=== PATIENT | male | born 1980 | race African-American/Black ===

== ENCOUNTER 2023-08-31 10:23 | Outpatient (CLI) | payer OTHER, SELFPAY ==
--- NOTE | ~2023-08-31 | XR_ITS ---
EXAMINATION: XR abdomen/kub 1V DATE: 08/31/2023 10:42 INDICATION: Left ureteral stone. TECHNIQUE: A supine view of the abdomen on 2 radiographs was obtained. COMPARISON: CT abdomen and pelvis 08/24/2023 FINDINGS: There are no dilated loops of bowel. There is a 4 mm stone in distal left ureter. There are phleboliths in the pelvis. The kidneys are obscured by bowel. There is a 4 mm stone in right kidney. There is a 2 mm stone left kidney. IMPRESSION: 1. 4 mm stone in distal left ureter. 2. Bilateral kidney stones. Reviewed, dictated and finalized at location A. L CASKET MAKER
== END 2023-08-31 10:24 | disposition home or self-care (01) ==
PROVIDERS: PCP Physician Assistant; Visit Provider Urology
DX: N20.2 Calculus of kidney with calculus of ureter (principal)
CPT/HCPCS: 74018

== ENCOUNTER 2023-09-05 13:47 | Outpatient (CLI) | payer OTHER, SELFPAY ==
--- NOTE | ~2023-09-05 | XR_ITS ---
EXAMINATION: XR abdomen/kub 1V DATE: 09/05/2023 14:10 INDICATION: Kidney stone. TECHNIQUE: A supine view of the abdomen on 2 radiographs was obtained. COMPARISON: CT abdomen and pelvis 08/24/2023, radiographs 08/31/2023 FINDINGS: There is a large volume of stool in the colon. There is a 4 mm stone in right kidney. There are phleboliths in the pelvis. There is a 4 mm stone at left ureterovesicular junction. IMPRESSION: 1. 4 mm stone at left ureterovesicular junction. 2. 4 mm stone in right kidney. Reviewed, dictated and finalized at location E. STRINGER ASSEMBLER
== END 2023-09-05 13:48 ==
PROVIDERS: PCP Urology; Visit Provider Urology
DX: N20.2 Calculus of kidney with calculus of ureter (principal)
CPT/HCPCS: 74018

== ENCOUNTER 2023-09-11 14:15 | Outpatient (CLI) | payer OTHER, SELFPAY ==
[2023-09-11 15:05] LABS: Partial Thromboplastin Time 35.2 SECONDS (22.3-36.8)
== END 2023-09-11 14:16 | disposition home or self-care (01) ==
LOC: ANHSURGERY 14:20
PROVIDERS: Visit Provider Urology
DX: N20.1 Calculus of ureter (principal); Z01.818 Encounter for other preprocedural examination
CPT/HCPCS: 36415; 85610; 85730; 87086

== ENCOUNTER 2023-09-15 03:25 | Day surgery (SDC) | payer OTHER, SELFPAY ==
[2023-09-08 11:57] VITALS: BMI 22.4
--- NOTE | 2023-09-08 12:02 | PC.NURSE ---
Report to the Outpatient Waiting Room, entrance under the green pavilion located off [facility], at time 9:00 on date 09/15/23. Planned Procedure Time: 11:00. Time changes happen often and if your time is changed the preop area will call you the afternoon before. - You and your visitor will be asked to self-screen and do not enter if you have any COVID symptoms. - A mask is optional within the hospital at this time. Patients may have clear liquids (water, carbonated beverages, clear teas, apple juice) until 3 hours prior to surgery (8:00) with a maximum of 20 ounces. - No food from midnight until time of surgery Take the following medications with a SIP of water the morning of surgery: PAIN PILL IF NEEDED DO NOT STOP ANY OF YOUR OTHER PRESCRIPTION MEDICATIONS PRIOR TO SURGERY ?EXCEPT THE FOLLOWING Medications to discontinue per physician: N/A Date to take last dose: N/A Please no make-up, nail thai, hairspray, perfume, deodorant, or body powder the day of surgery. No jewelry (including any body piercings) or valuables the day of surgery, leave them at home. Please take a shower or bath the night before, or the morning of, surgery with an antibacterial soap. Wear comfortable, loose fitting clothing. - Jewelry must be removed prior to entering the operating room. Rings and piercings that are not removed may be cut off. - The hospital will not accept responsibility for valuables. - Please leave all valuables, including medications, at home the day of surgery. If you are going home after surgery, a licensed ice delivery driver must drive you home. - NO public transportation without another adult if you receive anesthesia. - We recommend that an adult stay with you for 24 hours following discharge. - We also recommend that you do not drive, make important decision, drink alcoholic beverages, or take any drugs that were not prescribed by your health care provider for at least 24 hours after your discharge time. Follow any additional instructions given to you from your surgeon. If you or anyone in your household have experienced Covid symptoms in the past week, please notify your surgeon or the nurse liaison at the phone number below for possible testing. Telephone instructions given to PT - MIRNA DUBOSE and asked if any additional questions and then verbalized understanding. Patient advised to call surgeon office or pre surgery nurse liaison [phone] if any additional questions.
--- NOTE | ~2023-09-15 | XR_ITS ---
EXAMINATION: XR abdomen/kub 1V DATE: 09/15/2023 09:30 INDICATION: Kidney stone. TECHNIQUE: A supine view of the abdomen on 2 radiographs was obtained. COMPARISON: CT abdomen and pelvis 09/15/2023 FINDINGS: There is a 5 mm stone in the bladder. There are phleboliths in left pelvis. There are no di lated loops of bowel. The kidneys are obscured by bowel. There is a 4 mm stone in right kidney upper pole. IMPRESSION: 1. 5 mm stone in the bladder. 2. 4 mm stone in right kidney upper pole. Reviewed, dictated and finalized at location A. NT CARE TECHNICIAN
--- NOTE | ~2023-09-15 | CT_ITS ---
Non-contrast CT scan of the Abdomen and Pelvis Clinical indication: Kidney stone Technique: 2.5 mm axial scans were obtained through the abdomen and pelvis without intravenous or or al contrast. Dose reduction technique was used on this scan by utilizing automated exposure control a nd iterative reconstruction technique. The dose-length product (DLP) was 224.98 mGy-cm. Findings: Images through the lung bases reveal no abnormalities. There are bilateral small nonobstructing renal stones. No definite ureteral stone or hydronephrosis o n either side. The liver, spleen, pancreas, gallbladder, and adrenals appear normal. There is no aortic aneurysm. There is no evidence of bowel obstruction. Images through the pelvis were performed. There is no evidence of ascites or lymphadenopathy. 5 mm ur inary bladder stone present. No pelvic mass evident. Impression: Small bilateral nonobstructing renal stones. No ureteral stone or hydronephrosis. 5 mm urinary bladder stone. Reviewed, dictated and finalized at [facility]. CTIVE AND INTELLIGENCE ANALYST Impression: Small bilateral nonobstructing renal stones. No ureteral stone or hydronephrosi s. 5 mm urinary bladder stone.
[2023-09-15 09:20] VITALS: BP 129/87; PULSE 69; RESP 14; TEMP 36.7; O2SAT 99; BMI 23.1
== END 2023-09-15 10:27 | disposition home or self-care (01) ==
PROVIDERS: Visit Provider Urology
PROC: (CPT 50590; principal; 2023-09-15 11:00)
PROC: (CPT 52352; 2023-09-15 11:00)
DX: N20.0 Calculus of kidney (principal); N21.0 Calculus in bladder; Z53.9 Procedure and treatment not carried out, unspecified reason
CPT/HCPCS: 74018; 74176; 99211; G0463; J2250; J3010